=== PATIENT | male | born 1980 | race Caucasian/White ===

== ENCOUNTER 2022-01-10 19:13 | Observation (INO) ==
[2022-01-10] MEDS ORDERED: diazePAM 10 MG/2 ML SYRINGE IVP STA (21:23)
[2022-01-10] MEDS ORDERED: Ondansetron 4 MG/2 ML VIAL IVP ONE (21:23)
[2022-01-10 22:20] LABS: Basophils % 0.2 %; Eosinophils # 0.2 K/mcL (0.0-0.6); Eosinophils % 1.9 %; Hematocrit 45.9 % (37.5-50.1); Hemoglobin 15.8 g/dL (12.9-16.9); Immature Granulocytes % 0.2 % (0-4); Lymphocytes % 21.9 %; Mean Corpuscular HGB Conc 34.4 g/dL (31.6-35.5); Mean Corpuscular Hemoglobin 30.4 pg (28.0-33.3); Mean Corpuscular Volume 88.3 fL (83.0-100.0); Monocytes # 0.6 K/mcL (0.0-1.3); Monocytes % 6.2 %; Neutrophils # 6.2 K/mcL (1.6-8.9); Platelet Count 181 K/mcL (140-400); Red Cell Distribution Width 12.3 % (11.5-14.5); Segmented Neutrophils % 69.6 %; White Blood Count 8.9 K/mcL (4.3-11.1)
[2022-01-10 22:38] LABS: Calcium 9.7 mg/dL (8.6-10.3); Potassium 4.2 mEq/L (3.5-5.1)
[2022-01-10] MEDS ORDERED: Ondansetron 4 MG/2 ML VIAL IVP PRN (22:52)
[2022-01-10] MEDS ORDERED: Naloxone 0.4 MG/ML INJ IVP PRN (22:52)
[2022-01-10] MEDS ORDERED: Morphine Sulfate 2 MG/ML SYRINGE IVP PRN (23:15)
[2022-01-10] MEDS ORDERED: Scopolamine Patch 1.5 MG PATCH.TD72 TD ONE (23:15)
[2022-01-10] MEDS ORDERED: Ringers Solution, Lactated 1,000 ML IVC SCH (23:15)
[2022-01-11] MEDS ORDERED: Ondansetron 4 MG/2 ML VIAL ONE (07:48)
[2022-01-11] MEDS ORDERED: *HR* Succinylcholine 200 MG/10 ML VIAL IVP ONE (07:48)
[2022-01-11] MEDS ORDERED: *HR* Propofol 200 MG/20 ML VIAL IVP ONE (07:48)
[2022-01-11] MEDS ORDERED: Lidocaine -MPF 2% 2 ML VIAL ONE ×2 (07:48→07:50)
[2022-01-11] MEDS ORDERED: *HR* FentaNYL (PF) 100 MCG/2 ML VIAL ONE (07:48)
[2022-01-11] MEDS ORDERED: Ringers Solution, Lactated 1,000 ML IVC SCH (08:00)
[2022-01-11 10:03] VITALS: TEMP 98.8
[2022-01-11 13:25] VITALS: BP 110/67; PULSE 80; O2SAT 97
== END 2022-01-11 13:39 | disposition home or self-care (01) ==
LOC: 3BNU 19:13 → EMEROOARM 19:13 → SUATTDRO 22:28 → 3BNU 23:00
PROVIDERS: ADMIT Internal Medicine; ATTEND Internal Medicine
PROC: ENDOEFB (~2022-01-10)